=== PATIENT | female | born 1955 | race Caucasian/White ===

== ENCOUNTER → 2016-11-13 | Outpatient (CLI) | payer MEDICARE, OTHER ==
[2016-11-13 10:33] LABS: Non-African American GFR(MDRD) >60 (>60 ml/min/1.73 sqM)
--- NOTE | 2016-11-13 13:03 | MR ---
EXAMINATION TYPE: MR lumbar spine wo/w con DATE OF EXAM: 11/13/2016 12:16 PM COMPARISON: 08/27/2014 HISTORY: Degenerative disc dis lsp, pain, arthritis x 20 years. TECHNIQUE: Multiplanar, multisequence images of the lumbar spine were acquired utilizing 15 mL intravenous Multi Mary gadolinium contrast. Diffusion weighted imaging was performed. L1-L2: Normal disc appearance without desiccation. No herniation, protrusion or disc bulging. No ca nal stenosis is present. Foramina are patent bilaterally. L2-L3: Normal disc appearance without desiccation. No herniation, protrusion or disc bulging. No ca nal stenosis is present. Foramina are patent bilaterally. L3-L4: There is moderate decreased signal ossified compatible degenerative disc disease. Posterocentr al disc herniation effaces the ventral thecal sac and results in moderate central stenosis. Mild surr ounding enhancement is noted. There is bilateral foraminal encroachment right greater than left. L4-L5: Mild disc desiccation posterior disc bulge. No herniation protrusion or central stenosis. Fora gregory are patent. L5-S1: Moderate disc desiccation is noted. Posterior disc bulge with mild effacement ventral thecal s ac. Slightly greater component paracentral and towards the left may result in left lateral recess bladimir nosis. No evidence for central stenosis. Foramina are patent. Lumbar segments are intact. No paraspinal masses are identified. Conus medullaris has a normal appe arance. There is a 9 mm vague enhancing lesion of the cauda equina at the L1-2 level which is nonspec ific and may reflect ependymoma or schwannoma. Lesion of other etiology is not excluded. Previous annabella dy did not include contrast administration. IMPRESSION: 1. Degenerative disc disease as discussed. 2. Disc herniation with central stenosis at L3-4. Disc bulging at additional levels. 3.9 mm vague enhancing lesion of the cauda equina at the L1-2 level which is nonspecific and may refl ect ependymoma or schwannoma. Lesion of other etiology is not excluded.
== END | disposition home or self-care (01) ==
LOC: RADMRIMAIN 10:05
PROVIDERS: ATTEND Physician Assistant
DX: M48.06 Spinal stenosis, lumbar region (principal); M51.27 Other intervertebral disc displacement, lumbosacral region; M51.36 Other intervertebral disc degeneration, lumbar region
CPT/HCPCS: 82565; 72158; 36415; A9577

== ENCOUNTER → 2018-04-08 | Outpatient (CLI) | payer MEDICARE, OTHER ==
--- NOTE | 2018-04-08 18:47 | CT ---
EXAMINATION TYPE: CT lumbar spine wo con DATE OF EXAM: 04/08/2018 6:27 PM COMPARISON: NONE HISTORY: Lumbaro, lower extremity weakness-left leg CT DLP: 1378 mGycm Automated exposure control for dose reduction was used. Unenhanced CT of the lumbar spine was performed. Bone and soft tissue window settings are submitted as well as coronal and sagittal reconstructions. There are rods and screws fusing posteriorly lumbar spine at L3-4. There is disc prosthesis at L3-4. Vertebra have normal alignment. There is narrowing of L3-4 disc space. The other disc spaces are fair ly normal. I see no compression fracture. There is no lumbar paraspinal mass. I see no focal bone opal truction. There is no evidence of spinal stenosis. There is left sided laminectomy at L3. The sacroil iac joints appear intact. IMPRESSION: Previous surgery. Mild disc space narrowing at L3-4. No fracture. No evidence of any significant spin al stenosis. There is improvement in the spinal canal narrowing at L3-4 compared to the preoperative exam on 11/13/2016.
== END | disposition home or self-care (01) ==
LOC: RADCTMAIN 18:01
PROVIDERS: ATTEND Psychiatry & Neurology Neurology
DX: M48.061 Spinal stenosis, lumbar region without neurogenic claudication (principal)
CPT/HCPCS: 72131

== ENCOUNTER 2020-12-24 11:34 | Inpatient (IN) | payer MEDICARE ==
[2020-12-24] MEDS ORDERED: SODIUM CHLORIDE 0.9% 1,000 ML IV STA (12:26)
[2020-12-24] MEDS ORDERED: MORPHINE SULFATE 4 MG/ML SYRINGE IV STA (12:27)
--- NOTE | 2020-12-24 12:32 | ED ---
General Adult HPI - General Chief complaint: Abdominal Pain Stated complaint: abd pain Time Seen by Provider: 12/24/20 12:07 Source: patient, EMS, RN notes reviewed, old records reviewed Mode of arrival: EMS Limitations: no limitations - History of Present Illness Initial comments: 65-year-old female presenting for evaluation of lower abdominal pain and decreased appetite and nausea. She states that her she does follow with urology for urinary retention and she self caths. She states that she has been told she has a bladder prolapse and recently had an abnormal Pap smear for which she is following up. She's had decreased appetite and lower abdominal pain for the past one week. No fever. She's had one episode of vomiting. She states she has not had a bowel movement in approximately one week as well. - Related Data Home Medications Medication Instructions Recorded Confirmed Methadone HCl 50 mg PO DAILY 03/18/14 02/02/15 Valsartan/Hydrochlorothiazide 1 each PO DAILY 03/18/14 02/02/15 [Diovan Hct 160-25 mg Tablet] Previous Rx's Medication Instructions Recorded ALPRAZolam [Xanax] 0.25 mg PO TID PRN #6 tab 03/18/14 Albuterol Sulfate [Proair Hfa] 2 puff INHALATION Q4HR PRN #1 02/02/15 inhaler Azithromycin [Zithromax Z-pack (6 1 pack PO DIRECTED #6 tab 02/02/15 tabs)] methylPREDNISolone [Medrol] 1 pack PO DIRECTED #1 tab.ds.pk 02/02/15 Allergies Allergy/AdvReac Type Severity Reaction Status Date / Time codeine Allergy Intermediate Itching Verified 12/24/20 11:48 amoxicillin [From Augmentin] Allergy Unknown Verified 12/24/20 11:48 clavulanic acid Allergy Unknown Verified 12/24/20 11:48 [From Augmentin] Penicillins AdvReac Confusion Verified 12/24/20 11:48 Review of Systems ROS Statement: Those systems with pertinent positive or pertinent negative responses have been documented in the HPI. ROS Other: All systems not noted in ROS Statement are negative. Past Medical History Past Medical History: Hyperlipidemia, Hypertension Additional Past Medical History / Comment(s): transverse myelitis History of Any Multi-Drug Resistant Organisms: None Reported Past Surgical History: Joint Replacement, Orthopedic Surgery Additional Past Surgical History / Comment(s): bilateral knee replacement Past Psychological History: No Psychological Hx Reported Smoking Status: Current every day smoker Past Alcohol Use History: None Reported Past Drug Use History: None Reported General Exam Limitations: no limitations General appearance: alert, in no apparent distress Head exam: Present: atraumatic, normocephalic Eye exam: Present: normal appearance, PERRL ENT exam: Present: mucous membranes dry Neck exam: Present: normal inspection. Absent: tenderness, meningismus Respiratory exam: Present: normal lung sounds bilaterally. Absent: respiratory distress, wheezes Cardiovascular Exam: Present: regular rate, normal rhythm GI/Abdominal exam: Present: soft, distended, tenderness. Absent: guarding, rebound, rigid Extremities exam: Present: normal inspection, normal capillary refill. Absent: pedal edema Neurological exam: Present: alert, oriented X3, CN II-XII intact. Absent: motor sensory deficit Psychiatric exam: Present: normal affect, normal mood Skin exam: Present: warm, dry, intact. Absent: cyanosis, diaphoretic Course Vital Signs 12/24/20 12/24/20 11:42 13:21 Temperature 97.9 F 98.0 F Pulse Rate 89 81 Respiratory 18 16 Rate Blood Pressure 108/65 107/78 O2 Sat by Pulse 97 98 Oximetry Medical Decision Making - Medical Decision Making 65-year-old female presenting with lower abdominal pain, decreased appetite, fatigue. Workup is initiated emergency department, she has a mild leukocytosis 0.0. Hemoglobin 7.4 which is new compared to previous of 14.3. Patient has a hyponatremia sodium 128, she has an elevated creatinine. Urinalysis showing many bacteria and nitrate positive. Culture pending. She started on IV fluids, IV antibiotics, pain control. CT is performed which shows a concerning large lower abdominal pelvic mass measuring 11 x 16. Patient will be admitted for pain control, IV fluids, IV antibiotics. Case discussed with Dr. Rogers who will admit. - Lab Data Result diagrams: 12/24/20 14:06 12/24/20 12:32 Lab Results 12/24/20 12/24/20 12/24/20 Range/Units 12:32 12:32 12:32 WBC 11.3 H (3.8-10.6) k/uL RBC 2.29 L (3.80-5.40) m/uL Hgb 7.2 L (11.4-16.0) gm/dL Hct 20.8 L (34.0-46.0) % MCV 90.8 (80.0-100.0) fL MCH 31.4 (25.0-35.0) pg MCHC 34.6 (31.0-37.0) g/dL RDW 12.7 (11.5-15.5) % Plt Count 304 (150-450) k/uL MPV 7.9 Neutrophils % 88 % Lymphocytes % 7 % Monocytes % 5 % Eosinophils % 0 % Basophils % 0 % Neutrophils # 9.9 H (1.3-7.7) k/uL Lymphocytes # 0.8 L (1.0-4.8) k/uL Monocytes # 0.5 (0-1.0) k/uL Eosinophils # 0.0 (0-0.7) k/uL Basophils # 0.0 (0-0.2) k/uL PT 9.6 (9.0-12.0) sec INR 0.9 (<1.2) APTT 24.0 (22.0-30.0) sec Sodium (137-145) mmol/L Potassium (3.5-5.1) mmol/L Chloride (98-107) mmol/L Carbon Dioxide (22-30) mmol/L Anion Gap mmol/L BUN (7-17) mg/dL Creatinine (0.52-1.04) mg/dL Est GFR (CKD-EPI)AfAm (>60 ml/min/1.73 sqM) Est GFR (CKD-EPI)NonAf (>60 ml/min/1.73 sqM) Glucose (74-99) mg/dL Plasma Lactic Acid Juni (0.7-2.0) mmol/L Calcium (8.4-10.2) mg/dL Total Bilirubin (0.2-1.3) mg/dL AST (14-36) U/L ALT (4-34) U/L Alkaline Phosphatase (38-126) U/L Total Protein (6.3-8.2) g/dL Albumin (3.5-5.0) g/dL Amylase (30-110) U/L Lipase (23-300) U/L Urine Color Yellow Urine Appearance Cloudy H (Clear) Urine pH 6.0 (5.0-8.0) Ur Specific [place] 1.014 (1.001-1.035) Urine Protein Trace H (Negative) Urine Glucose (UA) Negative (Negative) Urine Ketones Negative (Negative) Urine Blood Small H (Negative) Urine Nitrite Positive H (Negative) Urine Bilirubin Negative (Negative) Urine Urobilinogen <2.0 (<2.0) mg/dL Ur Leukocyte Esterase Trace H (Negative) Urine RBC 1 (0-5) /hpf Urine WBC 3 (0-5) /hpf Ur Squamous Epith Cells 2 (0-4) /hpf Urine Bacteria Many H (None) /hpf 12/24/20 12/24/20 12/24/20 Range/Units 12:32 12:32 14:06 WBC 11.0 H (3.8-10.6) k/uL RBC 2.30 L (3.80-5.40) m/uL Hgb 7.4 L (11.4-16.0) gm/dL Hct 21.2 L (34.0-46.0) % MCV 91.9 (80.0-100.0) fL MCH 31.9 (25.0-35.0) pg MCHC 34.8 (31.0-37.0) g/dL RDW 12.7 (11.5-15.5) % Plt Count 262 (150-450) k/uL MPV 8.0 Neutrophils % 82 % Lymphocytes % 11 % Monocytes % 5 % Eosinophils % 0 % Basophils % 0 % Neutrophils # 9.1 H (1.3-7.7) k/uL Lymphocytes # 1.3 (1.0-4.8) k/uL Monocytes # 0.5 (0-1.0) k/uL Eosinophils # 0.0 (0-0.7) k/uL Basophils # 0.0 (0-0.2) k/uL PT (9.0-12.0) sec INR (<1.2) APTT (22.0-30.0) sec Sodium 128 L (137-145) mmol/L Potassium 3.8 (3.5-5.1) mmol/L Chloride 94 L (98-107) mmol/L Carbon Dioxide 27 (22-30) mmol/L Anion Gap 7 mmol/L BUN 45 H (7-17) mg/dL Creatinine 1.10 H (0.52-1.04) mg/dL Est GFR (CKD-EPI)AfAm 62 (>60 ml/min/1.73 sqM) Est GFR (CKD-EPI)NonAf 54 (>60 ml/min/1.73 sqM) Glucose 104 H (74-99) mg/dL Plasma Lactic Acid Juni 0.9 (0.7-2.0) mmol/L Calcium 8.7 (8.4-10.2) mg/dL Total Bilirubin 0.7 (0.2-1.3) mg/dL AST 22 (14-36) U/L ALT 14 (4-34) U/L Alkaline Phosphatase 75 (38-126) U/L Total Protein 6.0 L (6.3-8.2) g/dL Albumin 3.3 L (3.5-5.0) g/dL Amylase 41 (30-110) U/L Lipase 35 (23-300) U/L Urine Color Urine Appearance (Clear) Urine pH (5.0-8.0) Ur Specific [place] (1.001-1.035) Urine Protein (Negative) Urine Glucose (UA) (Negative) Urine Ketones (Negative) Urine Blood (Negative) Urine Nitrite (Negative) Urine Bilirubin (Negative) Urine Urobilinogen (<2.0) mg/dL Ur Leukocyte Esterase (Negative) Urine RBC (0-5) /hpf Urine WBC (0-5) /hpf Ur Squamous Epith Cells (0-4) /hpf Urine Bacteria (None) /hpf Disposition Clinical Impression: Abdominal pain, UTI (urinary tract infection), IVAN (acute kidney injury), Anemia, Abdominal mass Disposition: ADMITTED IP TO THIS HOSP Condition: Stable Is patient prescribed a controlled substance at d/c from ED?: No Referrals: Akil Kramer DO [Primary Care Provider] - 1-2 days Decision to Admit Reason: Admit from EC Decision Date: 12/24/20 Decision Time: 15:06
[2020-12-24 12:43] LABS: Basophils % (A) 0 %; Eosinophils % (A) 0 %; HCT 20.8 % (34.0-46.0); HGB 7.2 gm/dL (11.4-16.0); Lymphocytes # (A) 0.8 k/uL (1.0-4.8); Lymphocytes % (A) 7 %; MCH 31.4 pg (25.0-35.0); MCHC 34.6 g/dL (31.0-37.0); MCV 90.8 fL (80.0-100.0); Mean Platelet Volume 7.9; Monocytes # (A) 0.5 k/uL (0-1.0); Monocytes % (A) 5 %; Neutrophils # (A) 9.9 k/uL (1.3-7.7); Neutrophils % (A) 88 %; Platelet Count 304 k/uL (150-450); RBC 2.29 m/uL (3.80-5.40); RDW 12.7 % (11.5-15.5); WBC 11.3 k/uL (3.8-10.6)
[2020-12-24 13:05] LABS: INR 0.9 (<1.2); Prothrombin Time 9.6 sec (9.0-12.0)
[2020-12-24 13:06] LABS: Albumin 3.3 g/dL (3.5-5.0); Calcium 8.7 mg/dL (8.4-10.2); Potassium 3.8 mmol/L (3.5-5.1); Total Bilirubin 0.7 mg/dL (0.2-1.3)
[2020-12-24 13:39] LABS: Appearance,Urine Cloudy (Clear); Bacteria,Urine Many /hpf; Bilirubin,Urine Negative (Negative); Blood,Urine Small (Negative); Color,Urine Yellow; Glucose,Urine (UA) Negative (Negative); Ketones,Urine Negative (Negative); Leukocyte Esterase,Urine Trace (Negative); Nitrite,Urine Positive (Negative); Protein,Urine Trace (Negative); RBC,Urine 1 /hpf (0-5); Specific Gravity,Urine 1.014 (1.001-1.035); Squamous Epithelial Cell,Urine 2 /hpf (0-4); Urobilinogen,Urine <2.0 mg/dL (<2.0); WBC,Urine 3 /hpf (0-5)
[2020-12-24 14:18] LABS: Basophils % (A) 0 %; Eosinophils % (A) 0 %; HCT 21.2 % (34.0-46.0); HGB 7.4 gm/dL (11.4-16.0); Lymphocytes # (A) 1.3 k/uL (1.0-4.8); Lymphocytes % (A) 11 %; MCH 31.9 pg (25.0-35.0); MCHC 34.8 g/dL (31.0-37.0); MCV 91.9 fL (80.0-100.0); Monocytes # (A) 0.5 k/uL (0-1.0); Monocytes % (A) 5 %; Neutrophils # (A) 9.1 k/uL (1.3-7.7); Neutrophils % (A) 82 %; Platelet Count 262 k/uL (150-450); RDW 12.7 % (11.5-15.5)
[2020-12-24] MEDS ORDERED: cefTRIAXone IN SWFI 1,000 MG/10 ML SYRINGE IVP STA (14:30)
--- NOTE | 2020-12-24 14:44 | CT ---
EXAMINATION TYPE: CT abdomen pelvis w con DATE OF EXAM: 12/24/2020 COMPARISON: None HISTORY: Abdominal pain CT DLP: 835.3 mGycm Automated exposure control for dose reduction was used. TECHNIQUE: Helical acquisition of images from the lung bases through the pelvis have been completed. CONTRAST: Performed without Oral Contrast and with IV Contrast, patient injected with 100 ml mL of Isovue 300. FINDINGS: LUNG BASES: Some probable basilar atelectatic changes are present, there is no pleural or pericardial effusion, some air bronchograms in left lower lobe noted, correlate to exclude pneumonia. AORTA: No significant abnormality is appreciated. LIVER/GB: No significant abnormality is appreciated. PANCREAS: No significant abnormality is seen. SPLEEN: No significant abnormality is seen. ADRENALS: No significant abnormality is seen. KIDNEYS: No significant abnormality is seen. REPRODUCTIVE ORGANS: There is a large mass in the pelvis and lower abdomen. Indeterminate origin but possibly a left ovarian mass measuring approximately 11 cm in AP dimension by 16 cm in transverse dim ension by 16 cm in cephalad to caudal dimension with mixed attenuation BOWEL: There is some small bowel folds which show thickened wall and the jejunum, left upper quadran t. FREE AIR: No Free Air visible. ASCITES: There is some free fluid in the pelvis which shows somewhat higher attenuation than plain f luid, some fluid also present in the paracolic gutters PELVIC ADENOPATHY: None visualized. RETROPERITONEAL ADENOPATHY: No Retroperitoneal Adenopathy visible. URINARY BLADDER: No significant abnormality is seen. OSSEOUS STRUCTURES: Postop changes are present status post posterior lumbar fusion, there is some st reak artifact.. IMPRESSION: INDETERMINATE ABDOMINAL MASS, CONSIDER MARINE SURVEYOR CONSULT. Minimal ascites. Correlate for possible enteritis . Findings at the lung bases as described.
[2020-12-24] MEDS ORDERED: NALOXONE 0.4 MG/ML 1 ML VIAL IV PRN (15:02)
[2020-12-24] MEDS ORDERED: ACETAMINOPHEN TAB 325 MG TAB PO PRN (15:02)
[2020-12-24] MEDS: MORPHINE SULFATE 4 MG/ML SYRINGE IV PRN ×3 (15:33→23:08)
[2020-12-24] MEDS: SODIUM CHLORIDE 0.9% 1,000 ML IV SCH (15:33)
--- NOTE | 2020-12-24 18:39 | P.HPIM ---
History of Present Illness This is a pleasant 65 years old female with past medical history of hypertension, hyperlipidemia, transverse myelitis. Patient does self catheterization although she is able to go to the restroom on her own as well. She's also with bilateral lower extremity weakness, more on the left leg but she can walk. She is follow-up with Dr. Herrera but last visit was 2 years ago. Her urologist Dr. mercado. Presents because of lower abdominal pain of 5 days' duration with decreased appetite and decreased urine output Abdominal pain goes both sides about 9/10. Increased by movement and felt like stabbing Her urine is dark with some urgency and increased frequency Patient with no diarrhea but has constipation. She smokes less than pack per day, she is counseled at agrees to nicotine patch, she used to smoke 3 packs per day. I'll call or illicit drugs. Vitas looks stable. Labs showing mild leukocytosis of 11, hemoglobin 7.4. Sodium is 128, creatinine 1.1 Urine analysis is suspicious for infection with positive nitrite CT of the abdomen and pelvis:showing 11 x 16 cm pelvic mass and possible left ovarian mass. Review of Systems CONSTITUTIONAL: No fever, no malaise, no fatigue. HEENT: No recent visual problems or hearing problems. Denied any sore throat. CARDIOVASCULAR: No orthopnea, PND, no palpitations, no syncope. PULMONARY: No shortness of breath, no cough, no hemoptysis. GASTROINTESTINAL: No diarrhea, no vomiting. Normoactive bowel sounds. NEUROLOGICAL: No headaches, no weakness, no numbness. HEMATOLOGICAL: Denies any bleeding or petechiae. GENITOURINARY: Denies any burning micturition, frequency, or urgency. MUSCULOSKELETAL/RHEUMATOLOGICAL: Denies any joint pain, swelling, or any muscle pain. ENDOCRINE: Denies any polyuria or polydipsia. Past Medical History Past Medical History: Hyperlipidemia, Hypertension Additional Past Medical History / Comment(s): transverse myelitis History of Any Multi-Drug Resistant Organisms: None Reported Past Surgical History: Joint Replacement, Orthopedic Surgery Additional Past Surgical History / Comment(s): bilateral knee replacement Past Psychological History: No Psychological Hx Reported Smoking Status: Current every day smoker Past Alcohol Use History: None Reported Past Drug Use History: None Reported Medications and Allergies Home Medications Medication Instructions Recorded Confirmed Type DULoxetine HCL [Cymbalta] 30 mg PO DAILY 12/24/20 12/24/20 History Morphine Sulfate ER [Ms Contin] 60 mg PO Q12H 12/24/20 12/24/20 History Valsartan/Hydrochlorothiazide 1 tab PO DAILY 12/24/20 12/24/20 History [Diovan Hct 320-25 mg Tablet] gemfibroziL [Lopid] 600 mg PO BID 12/24/20 12/24/20 History oxyCODONE-APAP 10-325MG [Percocet 1 tab PO Q12H 12/24/20 12/24/20 History 10-325 mg] Allergies Allergy/AdvReac Type Severity Reaction Status Date / Time codeine Allergy Intermediate Itching Verified 12/24/20 16:00 amoxicillin [From Augmentin] Allergy Unknown Verified 12/24/20 16:00 clavulanic acid Allergy Unknown Verified 12/24/20 16:00 [From Augmentin] Penicillins AdvReac Confusion Verified 12/24/20 16:00 Physical Exam Vitals: Vital Signs Temp Pulse Resp BP Pulse Ox 12/24/20 13:21 98.0 F 81 16 107/78 98 12/24/20 11:42 97.9 F 89 18 108/65 97 Intake and Output 12/23/20 12/24/20 12/24/20 22:59 06:59 14:59 Output Total 400 Balance -400 Output: Urine 400 Straight 400 Other: Weight 68.039 kg GENERAL: The patient is alert and oriented x3, not in any acute distress. Well developed, well nourished. HEENT: Pupils are round and equally reacting to light. EOMI. No scleral icterus. No conjunctival pallor. Normocephalic, atraumatic. No pharyngeal erythema. No thyromegaly. CARDIOVASCULAR: S1 and S2 present. No murmurs, rubs, or gallops. PULMONARY: Chest is clear to auscultation, no wheezing or crackles. -ABDOMEN: Soft, lower abdominal tenderness, nondistended, normoactive bowel sounds. No palpable organomegaly. MUSCULOSKELETAL: No joint swelling or deformity. EXTREMITIES: No cyanosis, clubbing, or pedal edema. NEUROLOGICAL: Gross neurological examination did not reveal any focal deficits. SKIN: No rashes. No petechiae Results CBC & Chem 7: 12/24/20 14:06 12/24/20 12:32 Labs: Abnormal Lab Results - Last 24 Hours (Table) 12/24/20 12/24/20 12/24/20 Range/Units 12:32 12:32 12:32 WBC 11.3 H (3.8-10.6) k/uL RBC 2.29 L (3.80-5.40) m/uL Hgb 7.2 L (11.4-16.0) gm/dL Hct 20.8 L (34.0-46.0) % Neutrophils # 9.9 H (1.3-7.7) k/uL Lymphocytes # 0.8 L (1.0-4.8) k/uL Sodium 128 L (137-145) mmol/L Chloride 94 L (98-107) mmol/L BUN 45 H (7-17) mg/dL Creatinine 1.10 H (0.52-1.04) mg/dL Glucose 104 H (74-99) mg/dL Total Protein 6.0 L (6.3-8.2) g/dL Albumin 3.3 L (3.5-5.0) g/dL Urine Appearance Cloudy H (Clear) Urine Protein Trace H (Negative) Urine Blood Small H (Negative) Urine Nitrite Positive H (Negative) Ur Leukocyte Esterase Trace H (Negative) Urine Bacteria Many H (None) /hpf 12/24/20 Range/Units 14:06 WBC 11.0 H (3.8-10.6) k/uL RBC 2.30 L (3.80-5.40) m/uL Hgb 7.4 L (11.4-16.0) gm/dL Hct 21.2 L (34.0-46.0) % Neutrophils # 9.1 H (1.3-7.7) k/uL Lymphocytes # (1.0-4.8) k/uL Sodium (137-145) mmol/L Chloride (98-107) mmol/L BUN (7-17) mg/dL Creatinine (0.52-1.04) mg/dL Glucose (74-99) mg/dL Total Protein (6.3-8.2) g/dL Albumin (3.5-5.0) g/dL Urine Appearance (Clear) Urine Protein (Negative) Urine Blood (Negative) Urine Nitrite (Negative) Ur Leukocyte Esterase (Negative) Urine Bacteria (None) /hpf Assessment and Plan Assessment: Lower abdominal pain, possibly secondary to cystitis and acute urinary tract infection Mild leukocytosis. Rule out infection Hypovolemic hyponatremia Mild acute kidney injury secondary to dehydration Recent history of abnormal Pap smear Hypertension. Hyperlipidemia Transverse myelitis many years ago, she self-catheterization with paraplegia more on the left side but patient is able to walk Nicotine dependence Plan: This is a pleasant 65 years old female who presents with lower abdominal pain,possible UTI, dehydration and IVAN. Continue with antibiotics ceftriax one,which will cover urine infection and possible enteritis follow-up urine culture. Continue with hydration and follow-up creatinine and sodium level. Pain management URBAN SOCIOLOGIST consult for history of abnormal Pap smear And lower abdominal mass Hold losartan/hydrochlorothiazide Labs and medication were reviewed.. Continue same treatment. Continue with symptomatic treatment. Resume home medication. Monitor lytes and vitals. DVT and GI prophylaxis. Further recommendations depends on the clinical course of the patient DVT prophylaxis: Subcutaneous heparin GI Prophylaxis: Pepcid Prognosis is guarded
[2020-12-24] MEDS ORDERED: ONDANSETRON 4 MG/2 ML VIAL IVP PRN (18:41)
[2020-12-24] MEDS: NICOTINE 21MG/24HR PATCH TRANSDERM SCH (19:34)
[2020-12-24] MEDS: DEXTROSE 5%-0.9% NACL 1,000 ML IV SCH (20:03)
[2020-12-24] MEDS: HEPARIN SODIUM,PORCINE 5,000 UNIT/ML 1 ML VIAL SQ SCH (22:32)
[2020-12-24] MEDS: FAMOTIDINE 20 MG/2 ML VIAL IV SCH (22:32)
[2020-12-25] MEDS: MORPHINE SULFATE 4 MG/ML SYRINGE IV PRN ×3 (03:19→10:30)
[2020-12-25] MEDS: FAMOTIDINE 20 MG/2 ML VIAL IV SCH (08:24)
[2020-12-25] MEDS: HEPARIN SODIUM,PORCINE 5,000 UNIT/ML 1 ML VIAL SQ SCH (08:24)
[2020-12-25] MEDS: NICOTINE 21MG/24HR PATCH TRANSDERM SCH (08:24)
[2020-12-25] MEDS: DEXTROSE 5%-0.9% NACL 1,000 ML IV SCH (08:32)
--- NOTE | 2020-12-25 09:13 | US ---
EXAMINATION TYPE: US pelvis complete transvag DATE OF EXAM: 12/25/2020 COMPARISON: CT 12/24/2020 CLINICAL HISTORY: abdominal mass. abd mass on CT, palpable for a while per patient, A4 TECHNIQUE: TA/TV. Transabdominal sonographic images of the pelvis were acquired. Transvaginal sono graphic images were medically necessary to better assess the following anatomy: Uterus and adnexal st ructures Date of LMP: 2006 EXAM MEASUREMENTS: Uterus: 8.5 x 3.8 x 3.6 cm Endometrial Stripe: unable to view Right Ovary: unable to view Left Ovary: unable to view patient is extreme pain and jumps with any pressure 1. Uterus: Retroverted TV images only, unable to discern transabdominally due to large mass, limited views appear wnl 2. Endometrium: unable to discern 3. Right Ovary: unable to discern due to large pelvic mass 4. Left Ovary: unable to discern due to large pelvic mass 5. Bilateral Adnexa: lt adnexal fluid with internal echoes 6. Posterior cul-de-sac: fluid with what appears to be soft tissue mass 17.3 x 16.0 x 10.3cm complex pelvic mass that extends up to umbilicus, obscures pelvic anatomy and ca nnot confirm if there is ovarian involvement. IMPRESSION: Abdominal mass is again noted. Pelvic MRI may be of benefit.
[2020-12-25 09:44] LABS: African American GFR (CKD) 112.4 (60.0-200.0); Albumin 3.2 g/dL (3.80-4.90); Albumin/Globulin Ratio 1.45 (1.60-3.17); Anion Gap 6.3 mmol/L (4.00-12.00); BUN/Creat Ratio 36.67 Ratio (12.00-20.00); Calcium 8.6 mg/dL (8.7-10.3); Carbon Dioxide 28.7 mmol/L (21.6-31.8); Globulin 2.2 g/dL (1.6-3.3); Potassium 3.6 mmol/L (3.5-5.5); Total Bilirubin 0.4 mg/dL (0.3-1.2); Total Protein 5.4 g/dL (6.2-8.2)
[2020-12-25] MEDS ORDERED: oxyCODONE-APAP 10-325MG 1 EACH TAB PO PRN (09:51)
[2020-12-25] MEDS ORDERED: MORPHINE SULFATE ER 60 MG TABLET PO SCH (10:00)
[2020-12-25 10:33] LABS: Basophils % (A) 0 %; Eosinophils % (A) 0 %; HCT 21.6 % (34.0-46.0); HGB 7.3 gm/dL (11.4-16.0); Lymphocytes # (A) 1.1 k/uL (1.0-4.8); Lymphocytes % (A) 11 %; MCH 30.8 pg (25.0-35.0); MCHC 33.8 g/dL (31.0-37.0); MCV 91.1 fL (80.0-100.0); Mean Platelet Volume 7.5; Monocytes # (A) 0.5 k/uL (0-1.0); Monocytes % (A) 5 %; Neutrophils % (A) 82 %; Platelet Count 353 k/uL (150-450); RBC 2.37 m/uL (3.80-5.40); RDW 13.1 % (11.5-15.5); WBC 9.7 k/uL (3.8-10.6)
[2020-12-25] MEDS ORDERED: HYDROmorphone 0.5 MG/0.5 ML SYRINGE IVP PRN (10:48)
[2020-12-25] MEDS ORDERED: HYDROmorphone 1 MG/ML 1 ML SYRINGE IM PRN (11:43)
--- NOTE | 2020-12-25 11:54 | P.PN ---
Subjective This is a pleasant 65 years old female with past medical history of hypertension, hyperlipidemia, transverse myelitis. Patient does self catheteriz ation although she is able to go to the restroom on her own as well. She's also with bilateral lower extremity weakness, more on the left leg but she can walk. She is follow-up with Dr. Herrera but last visit was 2 years ago. Her urologist Dr. mercado. Presents because of lower abdominal pain of 5 days' duration with decreased appetite and decreased urine output Abdominal pain goes both sides about 9/10. Increased by movement and felt like stabbing Her urine is dark with some urgency and increased frequency Patient with no diarrhea but has constipation. She smokes less than pack per day, she is counseled at agrees to nicotine patch, she used to smoke 3 packs per day. I'll call or illicit drugs. Vitas looks stable. Labs showing mild leukocytosis of 11, hemoglobin 7.4. Sodium is 128, creatinine 1.1 Urine analysis is suspicious for infection with positive nitrite CT of the abdomen and pelvis:showing 11 x 16 cm pelvic mass and possible left ovarian mass. 12/25/2020 Patient still complaining of from lower abdominal pain with palpable mass in the lower abdomen, although she says is better however her pain is significant that comes and goes but needs to stop talking while it is severe. Her going to change her morphine to Dilaudid 0.5-1 mg every 3 hours. Also she is on MS Sheeba n and Percocet at home for her history of transverse myelitis Blood pressure is a stable 127/64 Mild leukocytosis improved and creatinine is back to normal 0.6 we will check a pro-calcitonin tomorrow and is negative we can discontinue antibiotic Pelvic ultrasound showing 17.3 x 16 x 10.3 cm complex pelvic mass, cannot confirm source and MRI is recommended by radiologist [employer] consult on the case. Review of Systems CONSTITUTIONAL: No fever, no malaise, no fatigue. HEENT: No recent visual problems or hearing problems. Denied any sore throat. CARDIOVASCULAR: No orthopnea, PND, no palpitations, no syncope. PULMONARY: No shortness of breath, no cough, no hemoptysis. GASTROINTESTINAL: No diarrhea, no vomiting. Normoactive bowel sounds. NEUROLOGICAL: No headaches, no weakness, no numbness. Active Medications Generic Name Dose Route Start Last Admin Trade Name Freq PRN Reason Stop Dose Admin Acetaminophen 650 mg 12/24/20 15:02 Acetaminophen Tab 325 Mg Tab PO Q6HR PRN Mild Pain or Fever > 100.5 Duloxetine HCl 30 mg 12/26/20 09:00 Duloxetine Hcl 30 Mg Capsule.Dr PO DAILY TACHO Famotidine 20 mg 12/24/20 21:00 12/25/20 08:24 Famotidine 20 Mg/2 Ml Vial IV 20 mg Q12HR TACHO Administration Fenofibrate 160 mg 12/25/20 21:00 Fenofibrate 160 Mg Tab PO HS TACHO Heparin Sodium (Porcine) 5,000 unit 12/24/20 21:00 12/25/20 08:24 Heparin Sodium,Porcine 5,000 Unit/Ml 1 Ml Vial SQ 5,000 unit Q12HR TACHO Administration Hydromorphone HCl 0.5 mg 12/25/20 10:48 Hydromorphone 0.5 Mg/0.5 Ml Syringe IVP Q3HR PRN Severe Pain Sodium Chloride 1,000 mls @ 50 mls/hr 12/24/20 15:15 12/24/20 15:33 Saline 0.9% IV 50 mls/hr .Q20H TACHO Administration Dextrose/Sodium Chloride 1,000 mls @ 75 mls/hr 12/24/20 18:45 12/25/20 08:32 Dextrose 5%-Ns Iv Soln IV 75 mls/hr .[id number] TACHO Administration Ceftriaxone Sodium 1 gm/ 50 mls @ 100 mls/hr 12/25/20 09:00 12/25/20 08:24 Sodium Chloride IVPB 100 mls/hr Q24HR TACHO Administration Morphine Sulfate 60 mg 12/25/20 10:00 Morphine Sulfate Er 60 Mg Tablet PO Q12HR [facility] Protocol Naloxone HCl 0.2 mg 12/24/20 15:02 Naloxone 0.4 Mg/Ml 1 Ml Vial IV Q2M PRN Opioid Reversal Nicotine 1 patch 12/24/20 18:45 12/25/20 08:24 Nicotine 21mg/24hr Patch TRANSDERM 1 patch DAILY TACHO Administration Ondansetron HCl 4 mg 12/24/20 18:41 Ondansetron 4 Mg/2 Ml Vial IVP Q6HR PRN Nausea And Vomiting Oxycodone/Acetaminophen 1 each 12/25/20 09:51 Oxycodone-Apap 10-325mg 1 Each Tab PO Q12H PRN Pain Objective - Vital Signs Vital signs: Vital Signs Temp 98.5 F 12/25/20 07:34 Pulse 95 12/25/20 09:33 Resp 17 12/25/20 09:33 BP 127/64 12/25/20 07:34 Pulse Ox 100 12/25/20 07:34 Intake & Output 12/24/20 12/25/20 12/25/20 18:59 06:59 18:59 Intake Total 750 Output Total 400 500 400 Balance -400 250 -400 Weight 68.039 kg Intake: Intake, IV Titration 750 Amount Dextrose 5%-0.9% NaCl 1, 750 000 ml @ 75 mls/hr IV . [id number] TACHO Rx#:[id number] Output: Urine 400 500 400 Straight 400 500 400 Other: Voiding Method Self-Catheterization Self-Catheterization # Bowel Movements 0 - Labs CBC & Chem 7: 12/25/20 10:03 12/25/20 04:06 Labs: Abnormal Lab Results - Last 24 Hours (Table) 12/24/20 12/24/20 12/24/20 Range/Units 12:32 12:32 12:32 WBC 11.3 H (3.8-10.6) k/uL RBC 2.29 L (3.80-5.40) m/uL Hgb 7.2 L (11.4-16.0) gm/dL Hct 20.8 L (34.0-46.0) % Neutrophils # 9.9 H (1.3-7.7) k/uL Lymphocytes # 0.8 L (1.0-4.8) k/uL Sodium 128 L (137-145) mmol/L Chloride 94 L (98-107) mmol/L BUN 45 H (7-17) mg/dL Creatinine 1.10 H (0.52-1.04) mg/dL BUN/Creatinine Ratio (12.00-20.00) Ratio Glucose 104 H (74-99) mg/dL Calcium (8.7-10.3) mg/dL Total Protein 6.0 L (6.3-8.2) g/dL Albumin 3.3 L (3.5-5.0) g/dL Albumin/Globulin Ratio (1.60-3.17) g/dL Urine Appearance Cloudy H (Clear) Urine Protein Trace H (Negative) Urine Blood Small H (Negative) Urine Nitrite Positive H (Negative) Ur Leukocyte Esterase Trace H (Negative) Urine Bacteria Many H (None) /hpf 12/24/20 12/25/20 12/25/20 Range/Units 14:06 04:06 10:03 WBC 11.0 H (3.8-10.6) k/uL RBC 2.30 L 2.37 L (3.80-5.40) m/uL Hgb 7.4 L 7.3 L (11.4-16.0) gm/dL Hct 21.2 L 21.6 L (34.0-46.0) % Neutrophils # 9.1 H 8.0 H (1.3-7.7) k/uL Lymphocytes # (1.0-4.8) k/uL Sodium (137-145) mmol/L Chloride (98-107) mmol/L BUN (7-17) mg/dL Creatinine (0.52-1.04) mg/dL BUN/Creatinine Ratio 36.67 H (12.00-20.00) Ratio Glucose (74-99) mg/dL Calcium 8.6 L (8.7-10.3) mg/dL Total Protein 5.4 L (6.3-8.2) g/dL Albumin 3.20 L (3.5-5.0) g/dL Albumin/Globulin Ratio 1.45 L (1.60-3.17) g/dL Urine Appearance (Clear) Urine Protein (Negative) Urine Blood (Negative) Urine Nitrite (Negative) Ur Leukocyte Esterase (Negative) Urine Bacteria (None) /hpf Assessment and Plan Assessment: Lower abdominal pain, secondary to pelvic mass. Pelvic ultrasound:17.3 x 16 x 10.3 cm complex pelvic mass, unknown source Recent history of abnormal Pap smear Hypertension. Hyperlipidemia History of Transverse myelitis many years ago, she self-catheterization with paraplegia more on the left side but patient is able to walk Nicotine dependence Plan: This is a pleasant 65 years old female who presents with lower abdominal pain, secondary to pelvic mass. [employer] team has been consulted. Continue with IV hydration, and ceftriaxone for possible UTI. Check pro-testosterone [employer] consult for history of abnormal Pap smear And lower abdominal mass Hold losartan/hydrochlorothiazide Labs and medication were reviewed.. Continue same treatment. Continue with symptomatic treatment. Resume home medication. Monitor lytes and vitals. DVT and GI prophylaxis. Further recommendations depends on the clinical course of the patient DVT prophylaxis: Subcutaneous heparin GI Prophylaxis: Pepcid Prognosis is guarded
--- NOTE | 2020-12-25 12:12 | P.OBCN ---
History of Present Illness Consult date: 12/25/20 Reason for consult: pelvic mass Chief complaint: Acute abdominal pain History of present illness: The patient is a 65-year-old 6 para 2041 who has a long-standing history of urinary concerns with self catheterization of who began to experience increasing discomfort approximately 5 days ago. The pain continued to increase significantly ultimately leading to her presentation to the emergency department where she was admitted with suspected urinary tract infection and possible pyelonephritis but was also noted to have a very large pelvic or abdominal mass on computed tomography scan measuring in the ballpark of 10 x 11 x 16 cm. This was confirmed by ultrasound this morning and the mass appears to be complex in nature. The pelvic organs were otherwise not separately identified from the mass. Patient reports that she did not have significant abdominal distention until approximately Wednesday. She reports that her pain waxes and wanes but is acute in nature when it comes. She additionally was found recently through her primary care doctor's office to have an abnormal Pap smear which is not document ed as to its degree and can be followed up as an outpatient. Obstetrical history: 6 para 2041 with 2 normal vaginal deliveries in the past. Gynecologic history: Unremarkable with no history of any infections although she is currently complaining of some vaginal discharge. Review of Systems Review of systems is confined to history of present illness. Past Medical History Past Medical History: Hyperlipidemia, Hypertension Additional Past Medical History / Comment(s): transverse myelitis History of Any Multi-Drug Resistant Organisms: None Reported Past Surgical History: Joint Replacement, Orthopedic Surgery Additional Past Surgical History / Comment(s): bilateral knee replacement Past Anesthesia/Blood Transfusion Reactions: No Reported Reaction Past Psychological History: No Psychological Hx Reported Smoking Status: Current every day smoker Past Alcohol Use History: None Reported Past Drug Use History: None Reported Medications and Allergies Home Medications Medication Instructions Recorded Confirmed Type DULoxetine HCL [Cymbalta] 30 mg PO DAILY 12/24/20 12/24/20 History Morphine Sulfate ER [Ms Contin] 60 mg PO Q12H 12/24/20 12/24/20 History Valsartan/Hydrochlorothiazide 1 tab PO DAILY 12/24/20 12/24/20 History [Diovan Hct 320-25 mg Tablet] gemfibroziL [Lopid] 600 mg PO BID 12/24/20 12/24/20 History oxyCODONE-APAP 10-325MG [Percocet 1 tab PO Q12H 12/24/20 12/24/20 History 10-325 mg] Allergies Allergy/AdvReac Type Severity Reaction Status Date / Time codeine Allergy Intermediate Itching Verified 12/24/20 16:00 amoxicillin [From Augmentin] Allergy Unknown Verified 12/24/20 16:00 clavulanic acid Allergy Unknown Verified 12/24/20 16:00 [From Augmentin] Penicillins AdvReac Confusion Verified 12/24/20 16:00 Exam Vital Signs Temp Pulse Pulse Resp BP BP BP 12/25/20 09:33 95 17 12/25/20 07:34 98.5 F 95 17 127/64 12/25/20 04:20 99.1 F 90 18 119/69 12/24/20 20:12 98.0 F 72 16 115/80 12/24/20 20:00 98.3 F 80 16 134/72 12/24/20 17:00 97.8 F 78 18 110/80 12/24/20 13:21 98.0 F 81 16 107/78 Pulse Ox 12/25/20 09:33 12/25/20 07:34 100 12/25/20 04:20 95 12/24/20 20:12 98 12/24/20 20:00 94 L 12/24/20 17:00 98 12/24/20 13:21 98 Intake and Output 12/24/20 12/25/20 12/25/20 22:59 06:59 14:59 Intake Total 750 Output Total 500 400 Balance 250 -400 Intake: Intake, IV Titration 750 Amount Dextrose 5%-0.9% NaCl 1, 750 000 ml @ 75 mls/hr IV . [id number] [facility] Rx#:[id number] Output: Urine 500 400 Straight 500 400 Other: Voiding Method Self-Catheterization Self-Catheterization # Bowel Movements 0 In general, this is a well-developed, well-nourished white female in occasional discomfort which appears acutely and resolves acutely. Her heart has regular rhythm and rate without murmur. Her lungs are clear to auscultation bilaterally in all merchant. Her abdomen is distended with a palpable mass filling the lower abdomen below the umbilicus. She does guard to some extent in the left lower quadrant though there is no rebound tenderness. Remainder of her abdomen is nontender. Pelvic examination is deferred as will not be helpful to the diagnosis. Her extremities are without any cyanosis, clubbing, or edema and are nontender to palpation bilaterally. Results Result Diagrams: 12/25/20 10:03 12/25/20 04:06 Abnormal Lab Results - Last 24 Hours (Table) 12/24/20 12/24/20 12/24/20 Range/Units 12:32 12:32 12:32 WBC 11.3 H (3.8-10.6) k/uL RBC 2.29 L (3.80-5.40) m/uL Hgb 7.2 L (11.4-16.0) gm/dL Hct 20.8 L (34.0-46.0) % Neutrophils # 9.9 H (1.3-7.7) k/uL Lymphocytes # 0.8 L (1.0-4.8) k/uL Sodium 128 L (137-145) mmol/L Chloride 94 L (98-107) mmol/L BUN 45 H (7-17) mg/dL Creatinine 1.10 H (0.52-1.04) mg/dL BUN/Creatinine Ratio (12.00-20.00) Ratio Glucose 104 H (74-99) mg/dL Calcium (8.7-10.3) mg/dL Total Protein 6.0 L (6.3-8.2) g/dL Albumin 3.3 L (3.5-5.0) g/dL Albumin/Globulin Ratio (1.60-3.17) g/dL Urine Appearance Cloudy H (Clear) Urine Protein Trace H (Negative) Urine Blood Small H (Negative) Urine Nitrite Positive H (Negative) Ur Leukocyte Esterase Trace H (Negative) Urine Bacteria Many H (None) /hpf 12/24/20 12/25/20 12/25/20 Range/Units 14:06 04:06 10:03 WBC 11.0 H (3.8-10.6) k/uL RBC 2.30 L 2.37 L (3.80-5.40) m/uL Hgb 7.4 L 7.3 L (11.4-16.0) gm/dL Hct 21.2 L 21.6 L (34.0-46.0) % Neutrophils # 9.1 H 8.0 H (1.3-7.7) k/uL Lymphocytes # (1.0-4.8) k/uL Sodium (137-145) mmol/L Chloride (98-107) mmol/L BUN (7-17) mg/dL Creatinine (0.52-1.04) mg/dL BUN/Creatinine Ratio 36.67 H (12.00-20.00) Ratio Glucose (74-99) mg/dL Calcium 8.6 L (8.7-10.3) mg/dL Total Protein 5.4 L (6.3-8.2) g/dL Albumin 3.20 L (3.5-5.0) g/dL Albumin/Globulin Ratio 1.45 L (1.60-3.17) g/dL Urine Appearance (Clear) Urine Protein (Negative) Urine Blood (Negative) Urine Nitrite (Negative) Ur Leukocyte Esterase (Negative) Urine Bacteria (None) /hpf Assessment and Plan (1) Abdominal mass Current Visit: Yes Status: Acute Code(s): R19.00 - INTRA-ABD AND PELVIC SWELLING, MASS AND LUMP, UNSP SITE SNOMED Code(s): 367465291 (2) Abdominal pain Current Visit: Yes Status: Acute Code(s): R10.9 - UNSPECIFIED ABDOMINAL PAIN SNOMED Code(s): 98291267 Plan: The concern for a mass of this size is whether or not it may or may not be malignant in nature. As result, I have ordered a Ca 125 test as well as OVA-1 testing. Hopefully the former will return rather quickly while the latter may take some time to return. My concern given the acuity of the situation, the size of the mass and her level of discomfort is that it could represent ovarian torsion. I will discuss the case further with Dr. Rodriguez to see if Doppler flow may suggest this diagnosis. If she does have an ovarian torsion, she will likely have to proceed to the operating room for exploratory laparotomy and probable oopherectomy. This diagnosis may also explain her anemia which is otherwise unexplained to this point. If, however, there is a suggestion of the possibility of malignancy, she would best be managed in the care of [facility] [employer] [facility] oncology. We will await the results of some laboratory input for further disposition.
[2020-12-25] MEDS: SODIUM CHLORIDE 0.9% 1,000 ML IV SCH (12:26)
--- NOTE | 2020-12-25 13:16 | P.PN ---
Progress Note - Text Progress Note Date: 12/25/20 I have reviewed the imaging studies with radiology who feels that the mass is most likely to be malignant and very unlikely to be an ovarian torsion. As result, I further discussed the case with [employer] [facility] [facility] oncology at [facility], Dr. Rabbi Berg, who agrees to accept transfer for further workup as the patient is unlikely to be discharged secondary to her ongoing discomfort. He further feels that she should receive 2 units of blood and advance of transfer. Have also discussed the case with the primary care team who will arrange for the transfer as noted above. Contact information for Dr. Berg was left with the primary care team. I also informed the patient who agrees to the transfer after discussion of the concerns.
[2020-12-25 16:32] VITALS: BP 137/82; PULSE 93; RESP 17; TEMP 98.5
[2020-12-25] MEDS ORDERED: FENOFIBRATE 160 MG TAB PO SCH (21:00)
[2020-12-26] MEDS ORDERED: DULoxetine HCL 30 MG CAPSULE.DR PO SCH (09:00)
== END 2020-12-25 17:01 | disposition short-term general hospital (02) | DRG 690 ==
LOC: EC 11:34 → 5NMEDONC 15:02
PROVIDERS: ADMIT Internal Medicine; ATTEND Internal Medicine
PROC: 30233N1 Transfusion of Nonautologous Red Blood Cells into Peripheral Vein, Percutaneous Approach (ICD-10-PCS; principal; 2020-12-25)
DX: N30.90 Cystitis, unspecified without hematuria (principal); G37.3 Acute transverse myelitis in demyelinating disease of central nervous system; G82.20 Paraplegia, unspecified; E87.1 Hypo-osmolality and hyponatremia; N17.9 Acute kidney failure, unspecified; I10 Essential (primary) hypertension; K59.00 Constipation, unspecified; F17.210 Nicotine dependence, cigarettes, uncomplicated; E78.5 Hyperlipidemia, unspecified; D64.9 Anemia, unspecified; N81.10 Cystocele, unspecified; N89.8 Other specified noninflammatory disorders of vagina; Z20.822 Contact with and (suspected) exposure to COVID-19; Z88.5 Allergy status to narcotic agent; Z88.0 Allergy status to penicillin; Z88.8 Allergy status to other drugs, medicaments and biological substances; Z79.891 Long term (current) use of opiate analgesic; Z79.899 Other long term (current) drug therapy; Z96.653 Presence of artificial knee joint, bilateral
CPT/HCPCS: 36415; 74177; 76830; 76856; 80053; 81001; 82150; 83605; 83690; 84145; 85025; 85610; 85730; 86304; 86850; 86900; 86901; 86920; 87635; 96361; 96374; 96375; 96376; 99285

== ENCOUNTER → 2021-04-17 | Outpatient (CLI) | payer MEDICARE ==
[2021-04-17 11:38] LABS: African American GFR (CKD) >90 (>60 ml/min/1.73 sqM); Blood Urea Nitrogen 13 mg/dL (7-17); Non-African American GFR(CKD) >90 (>60 ml/min/1.73 sqM)
--- NOTE | 2021-04-17 14:13 | CT ---
EXAMINATION TYPE: CT brain w con DATE OF EXAM: 04/17/2021 COMPARISON: CT brain 08/21/2013 HISTORY: Ovarian CA, obsv. for mets CT DLP: 1012.7 mGycm Automated exposure control for dose reduction was used. CONTRAST: CT scan of the head is performed with IV Contrast, patient injected with 100 mL of Isovue 300. FINDINGS: There is no abnormal enhancing mass or midline shift identified. The ventricles and sulci are within normal limits in size. The globes are intact and the visualized sinuses are remarkable for inflamma tory change in the sphenoid sinus which is progressed in the interval, cerumen present within the ext ernal auditory canal bilaterally. IMPRESSION: Negative contrast enhanced head CT exam.
--- NOTE | 2021-04-17 14:38 | CT ---
CT cervical, thoracic, lumbar spine HISTORY: C 56.9, C 79.9 Helical acquisition obtained through the cervical, thoracic, lumbar spine following dynamic administr ation of 100 cc Isovue-300 IV. Automated exposure control for dose reduction. DLP 579.9 mGycentimeter s but the thoracic spine, 302.3 mGy centimeters for the cervical spine, 564.6 mGy centimeters for the lumbar spine. Correlation to CT lumbar spine 04/08/2018, thoracic spine MRI 08/27/[address] with contrast: There is loss of the normal cervical lordosis. Cervical vertebral celeste dies show preserved height, anterolisthesis grade 1 C3-4. Retrolisthesis grade 1 C6-7. Loss of disc h eight is greatest at C4-5 and C5-6 and C6-7, anterolisthesis grade 1 C7-T1. There is multilevel facet arthropathy change. Cervical vertebral bodies show no fracture. Segmentation anomaly present at C2, C3 and C4, there is ankylosis of the posterior elements. There is multilevel foraminal encroachment, uncovertebral joint hypertrophy causing foraminal encroachment on the bilaterally at C2-3, on the lef t at C3-4, C4-5, C5-6 and C6-7 bilaterally. No significant spinal stenosis. There is no lytic or blastic metastasis. The lungs show emphysematous changes. No evident abnormal en hancement. No evident adenopathy. Posterior midline fusion anomaly present at C1. Nodularity present within the thyroid gland. Thoracic spine with contrast: Thoracic vertebral bodies show preserved height. There is mild spinal c urvature. There is multilevel spondylosis. No significant spinal stenosis. Loss of disc height at int ervertebral levels the midthoracic spine consistent with degenerative disc disease. Thoracic vertebra l bodies show no fracture, laminectomy defect present at T7, spinous processes not identified at T6 o r T7. No evident disc herniation. There is no lytic or blastic lesion. No abnormal enhancement. Posterior diaphragmatic hernias contain fat. Lumbar spine CT with contrast: There is a similar appearance. There is artifact due to patient's post erior screws status post posterior fusion at L3-4, endplate changes, intervertebral spacing block not ed as on prior, there is multilevel facet arthropathy. No significant spinal stenosis. Foramina not a change present on the left at L3-4. There is no lytic or blastic lesion. No sizable disc herniation. No significant foraminal encroachment. There is a spinal curvature present. There are cortical cysts associated with the left kidney. Low dense left adrenal focus measures 9 mm may represent adenoma, thought to be stable. IMPRESSION: No evident metastatic disease.
== END | disposition home or self-care (01) ==
LOC: RADCTMAIN 10:13
PROVIDERS: ATTEND Psychiatry & Neurology Neurology
DX: C56.9 Malignant neoplasm of unspecified ovary (principal); M53.82 Other specified dorsopathies, cervical region
CPT/HCPCS: 82565; 84520; 72129; 72126; 72132; 70460; 36415; Q9967

== ENCOUNTER → 2021-10-27 | Outpatient (CLI) | payer MEDICARE ==
[2021-10-27 13:43] LABS: African American GFR (CKD) >90 (>60 ml/min/1.73 sqM); Blood Urea Nitrogen 8 mg/dL (7-17); Non-African American GFR(CKD) 87 (>60 ml/min/1.73 sqM)
--- NOTE | 2021-10-27 15:26 | CT ---
EXAMINATION TYPE: CT ChestAbdPelvis w con DATE OF EXAM: 10/27/2021 COMPARISON: 12/24/2020 HISTORY: ovarian CA CT DLP: 1479 mGycm CONTRAST: CT scan of the chest, abdomen and pelvis is performed with Oral Contrast and with IV Contrast, patien t injected with 100 mL of Isovue 300. CT Chest: LUNGS: The lungs are clear and free of infiltrate or atelectasis. No pulmonary nodule or mass is det ected. No pleural effusion or CT evidence of interstitial lung disease. MEDIASTINUM: Thoracic aorta is of normal caliber. The heart is not enlarged. No evidence for media stinal mass or adenopathy. HILAR STRUCTURES: No evidence for mass. No hilar adenopathy is appreciated. OTHER: No significant abnormality. CONTRAST CT ABDOMEN AND PELVIS FINDINGS: LIVER/GB: No calcified gallstones. No space occupying hepatic lesion. Biliary tree is of normal ca liber. PANCREAS: No inflammation. No distinct mass. SPLEEN: No splenic enlargement. No lesion seen. ADRENALS: No nodule. No thickening. KIDNEYS/BLADDER: No hydronephrosis. No nephrolithiasis. No disctinct renal mass. BOWEL: Normal appendix. Normal bowel caliber. No inflammation. GENITAL ORGANS: Previously noted large pelvic mass has been surgically excised. There are changes of hysterectomy and oophorectomy. No evidence for recurrent or residual mass at this time. LYMPH NODES: No greater than 1cm abdominal or pelvic lymph nodes are appreciated. AORTA: No significant abnormality. OSSEOUS STRUCTURES: No significant abnormality is seen. OTHER: No significant additional abnormality is seen. IMPRESSION: 1. Previously noted large pelvic mass has been surgically excised. No evidence for recurrent or resid ual disease at this time. No metastatic disease noted.
== END | disposition home or self-care (01) ==
LOC: RADCTMAIN 12:51
PROVIDERS: ATTEND Internal Medicine Hematology & Oncology
DX: Z08 Encounter for follow-up examination after completed treatment for malignant neoplasm (principal); Z85.43 Personal history of malignant neoplasm of ovary
CPT/HCPCS: 82565; 84520; 71260; 74177; 36415; Q9967

== ENCOUNTER 2022-05-05 09:10 | Day surgery (SDC) | payer MEDICARE ==
[2022-05-01 12:07] VITALS: BMI 25.0
[~2022-05-05 09:10] MED LIST: LIDOCAINE 1% (10MG/ML) FOR IV START INTRADERMA PRN
[2022-05-05] MEDS: LACTATED RINGERS 1,000 ML IV SCH ×2 (09:21→09:37)
[2022-05-05 09:29] VITALS: RESP 16; TEMP 97.5
[2022-05-05] MEDS ORDERED: LIDOCAINE 2% INJ 20 MG/ML (2 ML VIAL) ONE (10:25)
[2022-05-05] MEDS ORDERED: PROPOFOL 10 MG/ML 20 ML VIAL IV ONE (10:25)
--- NOTE | 2022-05-05 10:33 | P.GSHP ---
History of Present Illness H&P Date: 05/05/22 Chief Complaint: Colon wall thickening 66-year-old female with history of known ovarian cancer. Patient is in the midst of treatment for her ovarian cancer. Recent CAT scan chest abdomen and pelvis showed some thickening of the sigmoid colon. Patient describes chronic history of constipation. No rectal bleeding. Last colonoscopy 8 years ago. Past Medical History Past Medical History: Cancer, Fibromyalgia, Hearing Disorder / Deafness, Hyperlipidemia, Hypertension, Neurologic Disorder, Osteoarthritis (OA), Pulmonary Embolus (PE), Thyroid Disorder Additional Past Medical History / Comment(s): Hx ovarian cancer. Transverse Myelitis. Thyroid nodules. Hard of hearing. "Memory not as good as it used to be." History of Any Multi-Drug Resistant Organisms: None Reported Past Surgical History: Back Surgery, Hysterectomy, Joint Replacement, Orthopedic Surgery Additional Past Surgical History / Comment(s): Bilateral knee replacement, lower back reconstruction, bilateral foot surgery, vertebra removed from back (5-7), right rotator cuff repair. Past Anesthesia/Blood Transfusion Reactions: Motion Sickness Past Psychological History: Anxiety, Depression Smoking Status: Current every day smoker Past Alcohol Use History: None Reported Additional Past Alcohol Use History / Comment(s): Smokes 1 ppd, has been smoking for 50 yrs. Past Drug Use History: None Reported - Past Family History Sister(s) Family Medical History: Cancer Additional Family Medical History / Comment(s): Thyroid cancer. Mother Family Medical History: Cancer Additional Family Medical History / Comment(s): Blood cancer. Medications and Allergies Home Medications Medication Instructions Recorded Confirmed Type DULoxetine HCL [Cymbalta] 30 mg PO QAM 12/24/20 05/05/22 History Morphine Sulfate ER [Ms Contin] 60 mg PO Q12H 12/24/20 05/05/22 History gemfibroziL [Lopid] 600 mg PO QAM 12/24/20 05/05/22 History oxyCODONE-APAP 10-325MG [Percocet 1 tab PO TID 12/24/20 05/05/22 History 10-325 mg] LORazepam [Ativan] 0.5 mg PO BID 02/27/21 05/05/22 History Losartan Potassium 75 mg PO QAM 05/01/22 05/05/22 History Naloxegol Oxalate [Movantik] 25 mg PO DIRECTED 05/01/22 05/05/22 History Niraparib Tosylate [Zejula] 200 mg PO BID 05/01/22 05/05/22 History OLANZapine 5 mg PO DIRECTED PRN 05/01/22 05/05/22 History hydroCHLOROthiazide 25 mg PO QAM 05/01/22 05/05/22 History Allergies Allergy/AdvReac Type Severity Reaction Status Date / Time codeine Allergy Intermediate Itching Verified 05/05/22 09:22 amoxicillin [From Augmentin] Allergy Unknown Verified 05/05/22 09:22 clavulanic acid Allergy Unknown Verified 05/05/22 09:22 [From Augmentin] Penicillins AdvReac Confusion Verified 05/05/22 09:22 Surgical - Exam Vital Signs Temp Pulse Resp BP Pulse Ox 97.5 F L 116 H 16 162/107 95 05/05/22 09:24 05/05/22 09:24 05/05/22 09:24 05/05/22 09:24 05/05/22 09:24 Physical exam: General: Well-developed, well-nourished HEENT: Normocephalic, sclerae nonicteric Abdomen: Nontender, nondistended Extremities: No edema Neuro: Alert and oriented Assessment and Plan (1) Colon wall thickening Narrative/Plan: Will proceed with colonoscopy at this time Current Visit: Yes Status: Acute Code(s): K63.9 - DISEASE OF INTESTINE, UNSPECIFIED SNOMED Code(s): 281771713
--- NOTE | 2022-05-05 10:57 | P.PCN ---
Date of Procedure: 05/05/22 Procedure(s) Performed: PREOPERATIVE DIAGNOSIS: Colon wall thickening POSTOPERATIVE DIAGNOSIS: Tortuous colon, poor prep, mild diverticulosis PROCEDURE: Colonoscopy to the hepatic flexure ANESTHESIA: MAC SURGEON: Stevenson Whitney M.D. SPECIMENS: None ENDOSCOPIC PROCEDURE: The patient was placed on the endoscopy table in the left decubitus position. The Olympus colonoscope was inserted into the anus and passed under direct visualization to the proximal transverse colon. The patient's colon was significantly tortuous as was demonstrated on recent CAT scan. I could not advance the scope any more proximal than that location despite multiple attempts. The patient's prep was poor with retained solid and liquid stool seen scattered throughout the colon. The scope was withdrawn slowly. The transverse descending sigmoid and rectum appeared otherwise normal. There was no evidence of any inflammatory polypoid or neoplastic lesions. The area of the sigmoid colon wall thickening seen on recent CAT scan was felt to be fairly well visualized and no abnormalities were noted. The patient did have mi ld left-sided diverticulosis. Digital rectal examination was normal. The patient was taken to the recovery room in stable condition per anesthesia guidelines. RECOMMENDATIONS: Resume diet. Consider repeat colonoscopy 3-5 years.
[2022-05-05 11:22] VITALS: BP 174/115; PULSE 94
== END 2022-05-05 11:43 | disposition home or self-care (01) ==
LOC: ORWHC2ENDO 09:10
PROVIDERS: ATTEND Surgery
DX: K57.30 Diverticulosis of large intestine without perforation or abscess without bleeding (principal); K63.89 Other specified diseases of intestine; I10 Essential (primary) hypertension; E78.5 Hyperlipidemia, unspecified; F17.200 Nicotine dependence, unspecified, uncomplicated; Z86.711 Personal history of pulmonary embolism; E07.9 Disorder of thyroid, unspecified; M79.7 Fibromyalgia; Z79.899 Other long term (current) drug therapy; Z88.0 Allergy status to penicillin; Z88.5 Allergy status to narcotic agent; Z88.8 Allergy status to other drugs, medicaments and biological substances; Z80.8 Family history of malignant neoplasm of other organs or systems; Z79.891 Long term (current) use of opiate analgesic
CPT/HCPCS: 45378; J2704; J2001

== ENCOUNTER → 2022-10-14 | Outpatient (CLI) | payer MEDICARE | END | disposition home or self-care (01) | LOC: RADMAMWWP 15:53 | PROVIDERS: ATTEND Internal Medicine Hematology & Oncology | DX: Z12.31 Encounter for screening mammogram for malignant neoplasm of breast (principal) | CPT/HCPCS: 77063; 77067 ==

== ENCOUNTER → 2022-12-02 | Outpatient (CLI) | payer MEDICARE ==
--- NOTE | 2022-12-02 14:35 | CT ---
EXAMINATION TYPE: CT ChestAbdPelvis wo con CT DLP: 1111 mGycm, Automated exposure control for dose reduction was used. DATE OF EXAM: 12/02/2022 2:02 PM COMPARISON: 03/11/2022 CLINICAL INDICATION:Female, 67 years old with history of C56.9, Ovarian Cancer Technique: Multiple axial images of the chest, abdomen, and pelvis were obtained. Two-dimensional cor onal and sagittal reconstructions were obtained. Contrast used: None, multiple attempts at IV access were attempted. Oral contrast used: without Oral Contrast Findings: CHEST: LUNGS/ PLEURA: No focal consolidation, pneumothorax or pleural effusion. Mild centrilobular emphysema changes are present. AIRWAY: Patent and unremarkable. HEART: Size within normal limits. MEDIASTINUM: No gross evidence of adenopathy. VASCULATURE: No aortic aneurysm. MUSCULOSKELETAL: No acute osseous abnormalities. SOFT TISSUES/LYMPH NODES: Unremarkable. LOWER NECK: No significant findings. ABDOMEN: ABDOMEN LIVER: Unremarkable GALLBLADDER AND BILE DUCTS: Unremarkable. PANCREAS: Unremarkable. SPLEEN: Unremarkable. ADRENAL GLANDS: Unremarkable. KIDNEYS AND URETERS: No evidence of hydronephrosis or renal calculus. Left renal cyst. PELVIS BLADDER: Nondistended urinary bladder REPRODUCTIVE: The uterus is surgically absent. ABDOMEN & PELVIS STOMACH AND BOWEL: No evidence of bowel obstruction. Moderate amount of stool seen throughout the col on. PERITONEUM: No evidence of pneumoperitoneum or free fluid. VASCULATURE: No evidence of aortic aneurysm. MUSCULOSKELETAL: No acute osseous abnormalities, postsurgical changes to L3 and L4. Hardware appears intact. Multilevel disc degeneration changes are seen throughout the spine. Mild scoliosis changes ar e present. LYMPH NODES: No gross evidence for lymphadenopathy. Nodular change along the left gonadal vein is unc hanged measuring up to 6 mm when measuring with similar technique. SOFT TISSUE/ABDOMINAL WALL: Unremarkable IMPRESSION: 1. Stable left gonadal vein soft tissue prominence which could represent nonenlarged lymph node vers us thrombosed dilated vein. Attention on follow-up PET/CT. 2. No evidence for enlarged lymph node or evidence for recurrent/metastatic disease.
== END | disposition home or self-care (01) ==
LOC: RADCTMAIN 11:49
PROVIDERS: ATTEND Internal Medicine Hematology & Oncology
DX: C56.9 Malignant neoplasm of unspecified ovary (principal); Z03.89 Encounter for observation for other suspected diseases and conditions ruled out
CPT/HCPCS: 71250; 74176

== ENCOUNTER → 2023-06-11 | Outpatient (CLI) | payer MEDICARE ==
[2023-06-11 09:48] LABS: African American GFR (CKD) >90 (>60 ml/min/1.73 sqM); Blood Urea Nitrogen 15 mg/dL (7-17); Non-African American GFR(CKD) >90 (>60 ml/min/1.73 sqM)
--- NOTE | 2023-06-14 00:42 | CT ---
EXAMINATION TYPE: CT ChestAbdPelvis w con DATE OF EXAM: 06/11/2023 COMPARISON: 12/02/2022 and 03/11/2022 HISTORY: 67-year-old female C56.9, Ovarian CA TECHNIQUE: Contiguous axial scanning of the chest, abdomen, and pelvis performed with IV Contrast, pa tient injected with 100 mL of Isovue 300. Delayed images through the kidneys were obtained. Coronal/s agittal reconstructions performed. CT DLP: 757.8 mGycm Automated exposure control for dose reduction was used. FINDINGS: Chest: Heart normal size without pericardial effusion. Aorta normal caliber with very a direct takeoff of the left vertebral artery directly from the aortic arch. No thoracic lymphadenopathy by CT size criteria. Some minimal strandy areas of atelectasis in the lungs. No consolidation or pleural effusion. ABDOMEN: No focal liver lesion or biliary ductal dilatation. Portal venous system is patent. Gallbladder, right adrenal gland, spleen, and pancreas within normal limits. Scattered benign bilateral renal cortical cysts measuring up to 2.9 cm redemonstrated. A few surgical clips along the lower retroperitoneum. No dilated small bowel, free fluid, or free air . No mesenteric or retroperitoneal lymphadenopathy. There is moderate stool burden. No pericolonic inflammatory change. Similar mild mid abdominal rectus diastases. Pelvis: Mild circumferential bladder wall thickening. A couple small pelvic phleboliths. Uterus surgically ab sent. Neither ovary is visualized. No abnormal fluid collection in the pelvis or pelvic lymphadenopat hy. Bones: S-shaped scoliosis. There is posterior and interbody lumbar fusion from L3-L4. No osseous destructive process. Degenerative change of both shoulders. IMPRESSION: 1. Status post hysterectomy and bilateral salpingo-oophorectomies. The 8 mm nodularity along the lowe r left gonadal vein remains unchanged and could represent some mild varices. Otherwise, no suspicious lymphadenopathy or mass to suggest disease recurrence. 2. Moderate stool burden, possible constipation. 3. Mild circumferential bladder wall thickening may be chronic for the patient. Correlate to exclude cystitis.
== END | disposition home or self-care (01) ==
LOC: RADCTMAIN 08:34
PROVIDERS: ATTEND Internal Medicine Hematology & Oncology
DX: C56.9 Malignant neoplasm of unspecified ovary (principal); G62.0 Drug-induced polyneuropathy; N32.89 Other specified disorders of bladder; I10 Essential (primary) hypertension; Z90.710 Acquired absence of both cervix and uterus; R11.0 Nausea
CPT/HCPCS: 82565; 84520; 71260; 74177; 36415; Q9967

== ENCOUNTER → 2023-06-18 | Outpatient (CLI) | payer MEDICARE ==
--- NOTE | 2023-06-18 15:45 | US ---
EXAMINATION TYPE: US thyroid st tissue head/neck DATE OF EXAM: 06/18/2023 COMPARISON: NONE CLINICAL INDICATION: Female, 67 years old with history of R94.6 ABNORMAL RESULTS OF THYROID FUNCTION STUDIES; GLAND SIZE: Right Lobe: 4.7 x 2.0 x 2.3 cm Overall Parenchyma: heterogenous Left Lobe: 5.9 x 2.4 x 2.4 cm Overall Parenchyma: heterogenous Isthmus Thickness: 0.5 cm NODULES RIGHT: # of nodules measured on right: Multiple nodules seen measured largest. 1. 1.6 X 0.9 x 1.6 cm, lower , Prior size: No prior TIRADS Score: 3 TIRADS Category 3: Mildly Suspicious Composition: Solid or almost completely solid (2 points). Echogenicity: Hyperechoic or isoechoic (1 point). Shape: Wider than tall (0 points). Margin: Smooth (0 points). Echogenic foci: None or large comet-tail artifacts (0 points) Recommendation: If >2.5cm: FNA; If >1.5cm: Follow up at 1,3,5 years LEFT: # of nodules measured on left: Multiple nodules seen measured largest one. 1. 1.5 X 1.1 x 1.3 cm, upper lateral, Prior size: No prior TIRADS Score: 3 TIRADS Category 3: Mildly Suspicious Composition: Solid or almost completely solid (2 points). Echogenicity: Hyperechoic or isoechoic (1 point). Shape: Wider than tall (0 points). Margin: Smooth (0 points). Echogenic foci: None or large comet-tail artifacts (0 points) Recommendation: If >2.5cm: FNA; If >1.5cm: Follow up at 1,3,5 years ISTHMUS: # of nodules measured in the isthmus: 0 Bilateral neck scanned, no evidence of lymphadenopathy. IMPRESSION: Bilateral thyroid nodules the largest were measured bilaterally. Consider follow-up in one year.
== END | disposition home or self-care (01) ==
LOC: RADUSWWP 14:20
PROVIDERS: ATTEND Family Medicine
DX: E04.2 Nontoxic multinodular goiter (principal); R94.6 Abnormal results of thyroid function studies
CPT/HCPCS: 76536

== ENCOUNTER → 2023-12-14 | Outpatient (CLI) | payer MEDICARE ==
[2023-12-14 12:15] LABS: African American GFR (CKD) >90 (>60 ml/min/1.73 sqM); Blood Urea Nitrogen 13 mg/dL (7-17); Non-African American GFR(CKD) 83 (>60 ml/min/1.73 sqM)
--- NOTE | 2023-12-15 11:35 | CT ---
EXAMINATION TYPE: CT ChestAbdPelvis w con DATE OF EXAM: 12/14/2023 INDICATION: obs for mets. hx of ovarian ca COMPARISON: 1123 CT DLP: 796.90 mGycm CONTRAST: Performed with Oral Contrast and with IV Contrast, patient injected with 100 mL of Isovue 300. TECHNIQUE: Axial images at 5 mm thick sections. Reconstructed images in the coronal plane. Delayed images through the kidneys. FINDINGS: CT CHEST: Portion of the thyroid visualized is somewhat heterogenous. This can be evaluated with ultrasound. No suspicious lung nodules or focal infiltrates are present. No enlarged mediastinal or hilar adenopathy is evident. The ascending aorta diameter at the level of the main pulmonary artery is 3.6 cm. The main pulmonary artery diameter at the bifurcation is 2.[address] ABDOMEN: Liver: Normal Spleen: Normal Pancreas: Normal Adrenal glands: The adrenal glands are normal. Gallbladder: Normal Kidneys: No masses are evident. No hydronephrosis is present. There is a 2.9 cm cyst superior media l left kidney. Additional small cortical renal cysts are within the left kidney. Delayed images were obtained through the kidneys, which remain unremarkable. Aorta: Vascular calcification is within the aorta. Inferior vena cava: Normal. CT PELVIS: No suspicious fluid within the abdomen or omental caking. Loops of bowel within the abdomen and pelvis are normal. There are loops of bowel which are incom pletely distended or lack oral contrast limiting their evaluation. Appendix: Not identified. No dilated tubular structure or inflammatory changes. Urinary bladder: Decompressed with some limited evaluation. Genitourinary structures: Uterus not visualized compatible surgical history. Adnexal region. Unremark able. Osseous structures: No suspicious lytic or sclerotic lesions. Beam hardening artifact from prior lumb ar surgery is evident. Facet degenerative changes in the lower lumbar spine. IMPRESSION: 1. No suspicious changes to suggest metastatic disease.
== END | disposition home or self-care (01) ==
LOC: RADCTMAIN 11:31
PROVIDERS: ATTEND Internal Medicine Hematology & Oncology
DX: C56.9 Malignant neoplasm of unspecified ovary (principal); R11.0 Nausea; G62.0 Drug-induced polyneuropathy; I10 Essential (primary) hypertension
CPT/HCPCS: 82565; 84520; 71260; 74177; 36415; Q9967

== ENCOUNTER → 2024-07-17 | Outpatient (CLI) | payer MEDICARE ==
--- NOTE | 2024-07-18 21:10 | US ---
EXAMINATION TYPE: US thyroid st tissue head/neck DATE OF EXAM: 07/17/2024 COMPARISON: NONE CLINICAL INDICATION: Female, 68 years old with history of E04.1 NONTOXIC SINGLE THYROID NODULE; f/u e xam GLAND SIZE: Right Lobe: 4.1 x 1.9 x 2.2 cm Overall Parenchyma: heterogeneous Left Lobe: 5.2 x 2.1 x 3.2 cm Overall Parenchyma: heterogeneous Isthmus Thickness: 0.7 cm NODULES RIGHT: # of nodules measured on right: measured largest 1 1. 1.1 X 0.9 x 0.9 cm, lower , solid or almost completely solid, hypoechoic nodule, which is wider t cottrell tall, with smooth margins, with echogenic foci. TR 4 Prior size: 1.5 x 1.3 x 1.1 cm LEFT: # of nodules measured on left: measured largest 1 1. 1.1 X 1.1 x 1.1 cm, lower , solid or almost completely solid, hypoechoic nodule, which is wider than tall, with smooth margins, without echogenic foci. Prior size: 1.6 x 0.9 x 1.6 cm ISTHMUS: # of nodules measured in the isthmus: 0 Bilateral neck scanned, no evidence of lymphadenopathy. IMPRESSION: 1. Moderately suspicious nodules which appear diminished in size from comparison. Follow-up exam in o ne year is recommended. 2017 ACR TI-RADS LEVEL: TR-RADS 4 - Moderately Suspicious: Follow if > 1 cm, FNA if > 1.5 cm *Highest TI-RADS level nodule reported [facility], , 07/18/2024 9:07 PM
== END | disposition home or self-care (01) ==
LOC: RADUSWWP 11:36
PROVIDERS: ATTEND Family Medicine
DX: E04.1 Nontoxic single thyroid nodule (principal)
CPT/HCPCS: 76536

== ENCOUNTER → 2024-07-17 | Outpatient (CLI) | payer MEDICARE ==
--- NOTE | 2024-07-17 15:51 | MM ---
Reason for Exam: Screening (asymptomatic). Last mammogram was performed 1 year(s) and 9 month(s) ago. Patient History: Menarche at age 14. First Full-Term at age 35. Late child-bearing (after 32). Left ovary removed at age 65. Right ovary removed at age 65. Hysterectomy at age 65. Postmenopausal. Ovarian cancer, age 66. Previous chemotherapy at age 66. Sister had breast cancer at or over age 50. Risk Values: April 5 year model risk: 3.4%. NCI Lifetime model risk: 11.8%. Prior Study Comparison: 06/20/2014 Bilateral MG screening mammo w CAD - 2, Unknown. 10/15/2016 Bilateral MG screening mammo w CAD - 2, Unknown. 10/14/2022 Bilateral MG 3D screening mammo w/cad, [facility]. Tissue Density: The breasts are heterogeneously dense, which may obscure small masses. Findings: Analyzed By CAD. The pattern is symmetrical. No significant interval changes are evident. No suspicious groups of microcalcifications, spiculated or lobular masses, architectural distortion or other secondary signs of malignancy are mammographically apparent. Overall Assessment: Benign, BI-RAD 2 Management: Screening Mammogram of both breasts in 1 year. A negative mammogram report should not preclude additional follow up of suspicious palpable abnormalities. Patient should continue monthly self breast exam. A clinical breast exam by your physician is recommended on an annual basis and results should be correlated with mammographic findings. Note on April scores and lifetime risk: 1. A April score greater than 3% is considered moderate risk. If this is the case, consider specialist referral to assess eligibility for a risk reducing agent. 2. If overall lifetime risk for the development of breast cancer is 20% or higher, the patient may qualify for future screening with alternating mammogram and breast MRI. [facility], , 07/17/2024 3:48 PM. Electronically signed and approved by: Marbin Whitehead D.O. Radiologis
== END | disposition home or self-care (01) ==
LOC: RADMAMWWP 11:34
PROVIDERS: ATTEND Family Medicine
DX: Z12.31 Encounter for screening mammogram for malignant neoplasm of breast
CPT/HCPCS: 77063; 77067

== ENCOUNTER → 2024-07-17 | Outpatient (CLI) | payer MEDICARE ==
[2024-07-17 09:54] LABS: African American GFR (CKD) >90 (>60 ml/min/1.73 sqM); Blood Urea Nitrogen 13 mg/dL (7-17); Non-African American GFR(CKD) >90 (>60 ml/min/1.73 sqM)
--- NOTE | 2024-07-17 11:34 | CT ---
EXAMINATION TYPE: CT ChestAbdPelvis w con DATE OF EXAM: 07/17/2024 COMPARISON: 12/14/2023 and 06/11/2023 HISTORY: 68-year-old female C5 6.9 Hx ovarian ca, routine follow up TECHNIQUE: Contiguous axial scanning of the chest, abdomen, and pelvis performed with IV Contrast, pa tient injected with 100 mL of Isovue 300. Delayed images through the kidneys were obtained. Coronal/s agittal reconstructions performed. CT DLP: 769.50 mGycm Automated exposure control for dose reduction was used. FINDINGS: Chest: The heart is normal size with mild LAD coronary artery calcifications. Aorta normal caliber with aberrant artery take off of the left vertebral artery directly from the aor tic arch. No thoracic lymphadenopathy by CT size criteria. Some strandy scarring at the left base and inferior lingula. There is mild emphysematous change. No c onsolidation or pleural effusion. ABDOMEN: Similar mild dilatation of the bile duct up to 7 mm. Portal vein is patent. No focal liver lesion. Gallbladder, adrenal glands, spleen, and pancreas show no gross abnormality. A few bilateral renal cortical cysts redemonstrated measuring up to 2.7 cm. Extrarenal pelvis right k idney redemonstrated. No dilated small bowel, free fluid, or free air. No mesenteric or retroperitoneal lymphadenopathy is seen. Moderate stool burden. Redundant sigmoid colon. No pericolonic inflammatory change. Pelvis: Mild circumferential bladder wall thickening is unchanged. Small bladder wall diverticulum measuring 1.3 cm left lateral aspect. A couple pelvic phleboliths. Uterus surgically absent. Neither ovary is v isualized. No abnormal fluid collection in the pelvis or pelvic lymphadenopathy is seen. Bones: Mild degenerative change of the hips. The patient is status post L3-L4 posterior and interbody lumbar fusion. There appears to be previous laminectomy change at the mid thoracic spine. No osseous destructive pro cess is identified. Moderate degenerative change at the shoulders. Suture anchors right humeral head from prior cuff repair. IMPRESSION: 1. STATUS POST HYSTERECTOMY AND BILATERAL SALPINGO-OOPHORECTOMIES. NO EVIDENCE FOR RECURRENT OR METAS TATIC DISEASE. 2. MODERATE STOOL BURDEN, POSSIBLE CONSTIPATION. [facility], , 07/17/2024 11:31 AM
== END | disposition home or self-care (01) ==
LOC: RADCTMAIN 09:09
PROVIDERS: ATTEND Internal Medicine Hematology & Oncology
DX: C56.9 Malignant neoplasm of unspecified ovary
CPT/HCPCS: 36415; 71260; 74177; 82565; 84520

== ENCOUNTER → 2025-01-23 | Outpatient (CLI) | payer MEDICARE ==
[2025-01-23 10:06] LABS: African American GFR (CKD) >90 (>60 ml/min/1.73 sqM); Blood Urea Nitrogen 13 mg/dL (7-17); Non-African American GFR(CKD) >90 (>60 ml/min/1.73 sqM)
--- NOTE | 2025-01-23 12:39 | CT ---
EXAMINATION TYPE: CT ChestAbdPelvis w con DATE OF EXAM: 01/23/2025 COMPARISON: Most recent prior CT July 17, [address] CLINICAL INDICATION: Female, 69 years old with history of C56.9 MALIGNANT NEOPLASM OF UNSPECIFIED OVA RY, F/O OVARIAN CA, TECHNIQUE: CT scan of the thorax, abdomen and pelvis is performed with oral and with IV Contrast, patient inject ed with 100 ML mL of Isovue 300. CT DLP: 771 mGycm. Automated Exposure Control for Dose Reduction was Utilized. FINDINGS: LUNGS: The lungs are grossly clear, there is no concerning new parenchymal mass or focal consolidatio n identified. There is no pleural effusion or pneumothorax seen. The tracheobronchial tree is patent . HEART: Size within normal limits. Mild coronary artery calcifications present. MEDIASTINUM: There are no greater than 1 cm hilar or mediastinal lymph nodes. No pericardial effusi on is seen. LIVER/GB: Stable mild biliary dilatation common bile duct up to 9 mm. Gallbladder has distended phillip ns. PANCREAS: No significant abnormality is seen. SPLEEN: No significant abnormality is seen. ADRENALS: Stable slight nodular thickening to left adrenal gland consistent with benign lipid rich hy perplasia. KIDNEYS: A few small thin-walled cortical cyst in the left kidney are redemonstrated. BOWEL: Oral contrast does not reach level of the terminal ileum. No abnormal small or large bowel dil atation. Moderate wall thickening involving noncontrast opacified small bowel loops in the pelvis lik marcelino reflects product of poor distention. Correlate clinically to exclude a acute uncomplicated enter itis. GENITAL ORGANS: Uterus is surgically absent. LYMPH NODES: No greater than 1cm abdominal or pelvic lymph nodes are appreciated. OSSEOUS STRUCTURES: Surgical changes at L3-L4 level is seen. Scoliosis in the thoracic spine is redem onstrated. OTHER: No significant additional abnormality is seen. IMPRESSION: No suspicious new mass or adenopathy identified to suggest active neoplastic recurrence. No significant change from most recent prior CT. [facility], , 01/23/2025 12:37 PM
== END | disposition home or self-care (01) ==
LOC: RADCTMAIN 09:29
PROVIDERS: ATTEND Internal Medicine Hematology & Oncology
DX: C56.9 Malignant neoplasm of unspecified ovary (principal); R11.0 Nausea; G62.0 Drug-induced polyneuropathy; I10 Essential (primary) hypertension
CPT/HCPCS: 82565; 84520; 71260; 74177; Q9967